=== PATIENT | female | born 1995 ===

== ENCOUNTER 2020-04-30 04:49 | Day surgery (SDC) | payer BC ==
[2020-04-29 09:12] VITALS: BMI 26.2
[2020-04-30] MEDS ORDERED: ONDANSETRON 4 MG/2 ML VIAL IVPUSH PRN ×2 (14:08→14:09)
[2020-04-30] MEDS ORDERED: oxyCODONE HCL 5 MG TABLET PO PRN ×2 (14:08→14:09)
--- NOTE | 2020-04-30 14:08 | HP ---
History & Physical Update - History History: No Change (Consent signed and witnessed, all questions answered) - Physical Physical: No Change - Assessment Assessment: No Change - Plan Plan: No Change
[2020-04-30] MEDS ORDERED: IBUPROFEN 800 MG/8 ML IJ IVPB PRN (14:09)
[2020-04-30] MEDS ORDERED: IBUPROFEN 600 MG TABLET (FP) PO PRN (14:09)
--- NOTE | 2020-04-30 14:09 | OP ---
Operative Note - Note: Operative Date: 04/30/20 Pre-Operative Diagnosis: 24yo P0 with Metrorrhagia, not controlled with OCP Operation: Hysteroscopy,myomectomy,polypectomy, D&C Findings: Polyps x 2 Anterior wall, THALIA fibroid Post-Operative Diagnosis: Same as Pre-op Surgeon: Yessy Hernandez Anesthesiologist/REPRESENTATIVE: Danielle Hollins Anesthesia: MAC Specimens Removed: 1.Fibroid. 2.Polyps. 3.Endometrial curettings Estimated Blood Loss (mls): 5 Instrument used (Debridements only): Symphion resectoscope Drains & Tubes with Location: Dluid deficit - 100cc Drains, Volume Out (mls): 100 Fluid Volume Replaced (mls): 300 Operative Report Dictated: Yes
[2020-04-30] MEDS ORDERED: ELECTROLYTE-148 SOLN 1,000 ML IV SCH (14:15)
[2020-04-30] MEDS ORDERED: LACTATED RINGERS SOLUTION 1,000 ML IV SCH (14:15)
[2020-04-30] MEDS ORDERED: MIDAZOLAM HCL 2 MG/2 ML SINGLE DOSE VIAL ONE (14:28)
[2020-04-30] MEDS ORDERED: PROPOFOL 20 ML ONE ×2 (14:28)
[2020-04-30] MEDS ORDERED: DEXAMETHASONE SOD PHOSPHATE 4 MG/1 ML VIAL ONE (14:29)
[2020-04-30] MEDS ORDERED: SILVER NITRATE 75% APPLIC STCK 1 PKT EACH TP ONE (15:12)
[2020-04-30 17:27] VITALS: TEMP 97.4
[2020-04-30 17:30] VITALS: BP 111/63; PULSE 73
--- NOTE | 2020-04-30 19:31 | OP ---
DATE OF OPERATION: 04/30/2020 PREOPERATIVE DIAGNOSIS: A 24-year-old para 0 with metrorrhagia not controlled with oral contraceptives. OPERATION: Hysteroscopy, myomectomy, polypectomy, dilation and curettage. FINDINGS: Two polyps anterior wall low uterine segment fibroid. POSTOPERATIVE DIAGNOSIS: A 24-year-old para 0 with metrorrhagia not controlled with oral contraceptives. SURGEON: Samson Denise M.D. ANESTHESIOLOGIST: Danielle Hollins M.D. ANESTHESIA: MAC SPECIMENS REMOVED: In one container, fibroid polyps and endometrial curettings. DESCRIPTION OF OPERATIVE PROCEDURE: After insuring informed consent, patient is brought to the operating room where she was placed in dorsal lithotomy position. Vagina and perineum were prepped and draped in sterile fashion. After bladder was emptied and timeout was completed, the Rowe retractors were placed into the vagina. Cervix was articulated with tenaculum and dilated with gradually increasing in size dilators to accommodate 6.3 mm Symphion hysteroscope which was primed and white balanced and introduced into the cervix and the uterus without difficulty. The above findings were noted, and the resectoscope device was introduced through the operative port of the Symphion hysteroscope, and all above-noted structures were successfully resected, excellent hemostasis was noted. Subsequently all instruments were removed from uterus, cervix, and vagina. Sponge and instrument count was correct x2. Estimated blood loss was 5 mL. Patient drained 100 mL of urine at the beginning of the procedure. Fluid deficit was found to be approximately 100 mL and she received 300 mL of IV fluid. She tolerated procedure well and was brought to the recovery room, extubated in stable condition. SAMSON DENISE M.D. KAREN/[id number]
--- NOTE | 2020-05-02 16:22 | PATH ---
Surgical Pathology Report Patient Name: DAISY JUAREZ [facility]. Rec. #: [id number] /Age/Gender: 1995 (Age: 24) / F Account: [id number] Location: [facility] Taken: 04/30/2020 Received: 05/01/2020 Reported: 05/02/2020 Physicians: Yessy Hernandez M.D. Specimen(s) Received POLYPS, FIBROID, ENDOMETRIAL CURETTINGS Clinical History Menorrhagia Final Diagnosis POLYPS, FIBROIDS, ENDOMETRIAL CURETTINGS, HYSTEROSCOPIC FIBROID RESECTION, DILATION AND CURETTAGE: POLYPOID FRAGMENTS OF INACTIVE ENDOMETRIUM SUGGESTIVE OF ENDOMETRIAL POLYP. BUNDLES OF FIBROMUSCULAR TISSUE CONSISTENT WITH SUBMUCOSAL LEIOMYOMA. Electronically Signed Veronika Hung M.D. Gross Description Received in formalin labeled "polyps, fibroids, endometrial curettings," is a 2.5 x 2.0 x 0.3 cm aggregate of leiva soft tissue fragments. The formalin is filtered and the specimen is entirely submitted in 2 cassettes. /05/01/2020 saudi/05/01/2020
== END 2020-04-30 17:10 | disposition home or self-care (01) ==
LOC: JASU-SURG 04:49
PROVIDERS: ATTEND Obstetrics & Gynecology
PROC: 0UJD8ZZ Inspection of Uterus and Cervix, Via Natural or Artificial Opening Endoscopic (ICD-10-PCS; 2020-04-30)
PROC: 0UB98ZZ Excision of Uterus, Via Natural or Artificial Opening Endoscopic (ICD-10-PCS; 2020-04-30)
PROC: 0UB97ZX Excision of Uterus, Via Natural or Artificial Opening, Diagnostic (ICD-10-PCS; principal; 2020-04-30 13:00)
PROC: 0UDB7ZX Extraction of Endometrium, Via Natural or Artificial Opening, Diagnostic (ICD-10-PCS; 2020-04-30 13:00)
DX: N92.1 Excessive and frequent menstruation with irregular cycle (principal); N84.0 Polyp of corpus uteri; D25.0 Submucous leiomyoma of uterus
CPT/HCPCS: 84703; 88305-TC; 94760